=== PATIENT | female | born 1990 | race Caucasian/White ===

== ENCOUNTER 2024-03-15 08:29 | Emergency (ER) | payer BC, SELFPAY ==
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
[2024-03-15 08:45] VITALS: BP 130/70; PULSE 102; RESP 16; TEMP 36.8
[2024-03-15 08:50] VITALS: O2SAT 99
== END 2024-03-15 09:50 | disposition home or self-care (01) ==
PROVIDERS: Emergency Provider Nurse Practitioner Family
DX: S39.012A Strain of muscle, fascia and tendon of lower back, initial encounter (principal); V43.52XA Car driver injured in collision with other type car in traffic accident, initial encounter; M25.552 Pain in left hip; R07.89 Other chest pain; M47.816 Spondylosis without myelopathy or radiculopathy, lumbar region
CPT/HCPCS: 71046; 72100; 73502; 99214; G0463

== ENCOUNTER 2024-09-13 09:51 | Emergency (ER) | payer BC, SELFPAY ==
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
[2024-09-13 10:05] VITALS: BP 130/85; PULSE 80; RESP 16; TEMP 36.6; O2SAT 98
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
== END 2024-09-13 10:47 | disposition home or self-care (01) ==
PROVIDERS: Emergency Provider Nurse Practitioner
DX: J40 Bronchitis, not specified as acute or chronic (principal)
CPT/HCPCS: 71046; 99213; G0463